=== PATIENT | female | born 1985 | race Caucasian/White ===

== ENCOUNTER 2017-04-04 11:52 | Outpatient (CLI) | payer OTHER ==
[2017-04-04 12:15] LABS: BASOPHILS % 0.4 (0.0-1.5); EOSINOPHILS % 0.9 % (0.0-6.8); MEAN CORPUSCULAR HEMOGLOBIN 30.4 pg (28.0-34.0); MEAN CORPUSCULAR VOLUME 88.3 fl (80.0-100.0); MONOCYTES % 4.2 % (0.0-11.0); NEUTROPHILS # 9.2 # k/uL (1.4-7.7)
[2017-04-04 12:18] LABS: APPEARANCE,URINE Slightly Cloudy (CLEAR); COLOR,URINE Yellow (YELLOW); OCCULT BLOOD,URINE Trace-intact (NEGATIVE); PH URINE 5.5 (5.0 - 8.0); UROBILINOGEN URINE 0.2 Eu (0.2-1.0)
[2017-04-04 12:38] LABS: eGFR (African) > 60; eGFR (Non-African) > 60
[2017-04-04 18:41] LABS: LIPASE 18 U/L (13-60)
== END 2017-04-04 11:53 ==
LOC: LAB 11:52
PROVIDERS: ATTEND Nurse Practitioner Family
DX: R50.9 Fever, unspecified (principal); R10.816 Epigastric abdominal tenderness
CPT/HCPCS: 36415; 80053; 81002; 82150; 83690; 85025; 87086

== ENCOUNTER 2019-08-11 23:23 | Emergency (ER) | payer BC ==
[2019-08-11] MEDS ORDERED: DIPH,PERTUSS(ACELL),TET VAC/PF 0.5 ML DISP.SYRIN IM ONE (23:40)
== END 2019-08-11 23:52 ==
LOC: ED 23:23
DX: S61.412A Laceration without foreign body of left hand, initial encounter (principal); W26.8XXA Contact with other sharp object(s), not elsewhere classified, initial encounter
CPT/HCPCS: 12001; 90471; 90715; 99282; 99284